=== PATIENT | male | born 1970 | race Caucasian/White ===

== ENCOUNTER 2020-09-08 17:12 | Observation (INO) | payer OTHER ==
[~2020-09-08] VITALS: Ht 167.6 cm; Wt 88.4 kg
--- NOTE | 2020-09-08 17:39 | NUR ---
PT [facility]IS[facility] FROM [facility]. PER EMS PT FELL OFF APPROX 5FT AFTER TRIPPING. PT HAS R ANKLE FX AND CONTUSION TO LEFT CALF. PT RECEIVED 300MCG OF FENTANYL EN ROUTE TO THIS FACILITY. PT ALSO RECEIVED 1L NS AND 8MG OF ZOFRAN AT [facility]. SPLINT IN PLACE ON R FOOT, CMS INTACT. PT RESTING IN [facility], [facility] AT BEDSIDE, DR. BAEZ AT BEDSIDE FOR EVAL, PT STATES PAIN IS "MINIMAL" AT THIS TIME, LAST DOSE OF 100MCG OF FENTANYL WAS AT 1725. NADN AT THIS TIME, TM.
[2020-09-08] MEDS ORDERED: MORPHINE SULFATE 4 MG/ML, 1ML IVPush PRN (18:00)
[2020-09-08] MEDS ORDERED: MORPHINE SULFATE 4 MG/ML, 1ML ONE (18:08)
[2020-09-08] MEDS ORDERED: SODIUM CHLORIDE FLUSH 10ML SYR IVF ONE (18:30)
[2020-09-08] MEDS ORDERED: ONDANSETRON 2MG/ML, 2ML IVPush PRN (20:30)
[2020-09-08] MEDS ORDERED: morphine SULFATE 10 MG/ML, 1ML IV PRN (20:30)
[2020-09-08 20:37] VITALS: BP 184/83
[2020-09-08] MEDS: HYDROmorphone 1 MG/ML, 1ML INJ IV PRN ×2 (23:27→23:45)
[2020-09-09] MEDS ORDERED: HYDROmorphone 2 MG/ML, 1ML IVPush PRN
[2020-09-09] MEDS ORDERED: LACTATED RINGERS 1,000 ML IV SCH
[2020-09-09] MEDS ORDERED: LABETALOL 5MG/ML, 20ML IVPush PRN
[2020-09-09 00:24] VITALS: BP 168/81
[2020-09-09] MEDS: OXYcodone/APAP 5/325MG TABLET PO PRN ×3 (01:25→21:06)
[2020-09-09] MEDS: HYDROmorphone 1 MG/ML, 1ML INJ IV PRN ×2 (05:26→08:29)
[2020-09-09 06:11] LABS: BASOPHILS % (AUTO) 0 % (0-1); EOSINOPHILS % (AUTO) 2 % (1-7); LYMPHOCYTES % (AUTO) 19 % (22-44); MEAN CORPUSCULAR HEMOGLOBIN 30.6 pg (27.5-34.5); MEAN CORPUSCULAR HGB CONC 35.1 g/dL (33.2-36.2); MEAN PLATELET VOLUME 9.7 fL (7.4-10.4); MONOCYTES % (AUTO) 10 % (2-9); NEUTROPHILS % (AUTO) 69 % (42-75); PLATELET COUNT 164 x10^3/uL (130-400); RED BLOOD COUNT 4.41 x10^6/uL (4.38-5.82)
[2020-09-09 06:21] LABS: ANION GAP 4 mmol/L (5-15); CALCIUM 8.4 mg/dL (8.5-10.1); CHLORIDE 107 mmol/L (98-107)
[2020-09-09 06:22] LABS: CREATININE 0.63 mg/dL (0.7-1.3)
[2020-09-09] MEDS: SENNA/DOCUSATE TABLET PO SCH (07:49)
[2020-09-09 07:53] VITALS: BP 136/74
[2020-09-09] MEDS ORDERED: BUPIVACAINE/PF 0.5% ONE (11:16)
[2020-09-09] MEDS ORDERED: EPINEPHRINE 1 MG/ML, 1ML ONE (11:16)
[2020-09-09] MEDS ORDERED: FENTANYL PF 250 MCG/5ML ONE (11:37)
[2020-09-09] MEDS ORDERED: MIDAZOLAM 1 MG/ML, 2ML ONE (11:37)
[2020-09-09] MEDS ORDERED: CEFAZOLIN 1,000 MG ONE (11:38)
[2020-09-09] MEDS ORDERED: PROPOFOL 10 MG/ML, 20ML ONE (11:45)
[2020-09-09] MEDS ORDERED: BUPIVACAINE/PF-EPI 0.5% 1:200K IM ONE (12:07)
[2020-09-09] MEDS ORDERED: ONDANSETRON 2MG/ML, 2ML ONE ×2 (12:13)
[2020-09-09] MEDS ORDERED: DIAZEPAM 5 MG/ML, 2ML IVPush PRN (12:30)
[2020-09-09] MEDS ORDERED: OXYcodone 5 MG/5 ML ORAL.SOL UDC PO PRN (12:30)
[2020-09-09] MEDS ORDERED: DIPHENHYDRAMINE 50 MG/ML, 1ML IVPush PRN ×2 (12:30)
[2020-09-09] MEDS ORDERED: hydrALAzine 20 MG/ML, 1ML IV PRN (12:30)
[2020-09-09] MEDS ORDERED: MEPERIDINE/PF 25MG/0.5ML IVPush PRN (12:30)
[2020-09-09] MEDS ORDERED: ONDANSETRON 2MG/ML, 2ML IVPush PRN (12:30)
[2020-09-09] MEDS ORDERED: PROMETHAZINE 12.5 MG SUPP PR PRN (12:30)
[2020-09-09] MEDS ORDERED: MIDAZOLAM 1 MG/ML, 2ML IV PRN (12:30)
[2020-09-09] MEDS ORDERED: LABETALOL 5MG/ML, 20ML IV PRN (12:30)
[2020-09-09] MEDS ORDERED: PROMETHAZINE 25 MG/ML, 1ML IVPush PRN (12:30)
[2020-09-09] MEDS ORDERED: EPHEDRINE 50 MG/ML, 1ML IVPush PRN (12:30)
[2020-09-09] MEDS ORDERED: ALBUTEROL SULFATE 2.5 MG/3 ML NPPB PRN (12:30)
[2020-09-09] MEDS ORDERED: ACETAMINOPHEN 325 MG TABLET PO PRN ×2 (12:30)
[2020-09-09] MEDS ORDERED: OXYcodone 5 MG/5 ML ORAL.SOL UDC ONE (12:41)
[2020-09-09] MEDS ORDERED: ACETAMINOPHEN 650 MG/20.3 ML UDC ONE (12:41)
[2020-09-09] MEDS ORDERED: FENTANYL PF 100 MCG/2ML ONE (12:41)
[2020-09-09] MEDS: FENTANYL PF 100 MCG/2ML IV PRN ×2 (12:43→12:50)
[2020-09-09] MEDS ORDERED: HYDROmorphone 1 MG/ML, 1ML INJ ONE ×2 (13:03→13:23)
[2020-09-09] MEDS: HYDROmorphone 1 MG/ML, 1ML INJ IVPush PRN ×4 (13:05→13:44)
[2020-09-09] MEDS ORDERED: hydrALAzine 20 MG/ML, 1ML ONE (13:17)
[2020-09-09 14:52] VITALS: BP 133/74
[2020-09-09 19:06] VITALS: BP 159/83
[2020-09-10 00:23] VITALS: BP 148/82
[2020-09-10] MEDS: HYDROmorphone 1 MG/ML, 1ML INJ IV PRN ×2 (00:32→05:38)
[2020-09-10] MEDS: OXYcodone/APAP 5/325MG TABLET PO PRN ×4 (02:19→16:38)
[2020-09-10 04:23] VITALS: BP 111/75
[2020-09-10 07:35] VITALS: BP 117/74
[2020-09-10] MEDS: SENNA/DOCUSATE TABLET PO SCH (08:33)
[2020-09-10 14:01] VITALS: BP 143/73
[2020-09-10] MEDS ORDERED: OXYC5TAB2 PO (16:05)
== END 2020-09-10 18:57 | disposition home or self-care (01) ==
LOC: ED 20:14 → INTOOBSV 20:16 → EDIP 20:16 → 4NE 20:28
PROVIDERS: ADMIT Family Medicine; ATTEND Hospitalist
DX: S82.391A Other fracture of lower end of right tibia, initial encounter for closed fracture (principal); Z20.822 Contact with and (suspected) exposure to COVID-19; S82.831A Other fracture of upper and lower end of right fibula, initial encounter for closed fracture; I26.99 Other pulmonary embolism without acute cor pulmonale; R73.9 Hyperglycemia, unspecified; R74.8 Abnormal levels of other serum enzymes; M25.512 Pain in left shoulder; I63.9 Cerebral infarction, unspecified; W12.XXXA Fall on and from scaffolding, initial encounter; Y92.89 Other specified places as the place of occurrence of the external cause; Y93.89 Activity, other specified
CPT/HCPCS: 20690; 36415; 71045; 73590; 73610; 73700; 80048; 83036; 85025; 87635; 93005; 96361; 96374; 96375; 96376; 97163; 99284; C1713; G0378; J0171; J0360; J0690; J1170; J2250; J2270; J2405; J2704; J3010; J7120; S0020; 76000

== ENCOUNTER 2020-09-26 05:47 | Day surgery (SDC) | payer OTHER ==
[~2020-09-26] VITALS: Ht 167.6 cm; Wt 86.3 kg
[~2020-09-26 05:47] MED LIST: OXYC5TAB2 PO
[2020-09-26] MEDS ORDERED: ACET325T14 PO (06:22)
[2020-09-26] MEDS ORDERED: BUPIVACAINE/PF 0.5% ONE ×2 (06:24→07:08)
[2020-09-26] MEDS ORDERED: LIDOCAINE/PF 1%, 30ML ONE (06:24)
[2020-09-26] MEDS ORDERED: CHLORHEXIDINE 15 ML UDC ONE (06:24)
[2020-09-26] MEDS ORDERED: CHLORHEXIDINE 15 ML UDC PO ONE (06:30)
[2020-09-26] MEDS ORDERED: LACTATED RINGERS 1,000 ML IV SCH (06:30)
[2020-09-26 06:31] VITALS: BP 155/89
[2020-09-26] MEDS ORDERED: MIDAZOLAM 1 MG/ML, 2ML ONE (06:52)
[2020-09-26] MEDS ORDERED: FENTANYL PF 250 MCG/5ML ONE (06:53)
[2020-09-26] MEDS ORDERED: LIDOCAINE-MPF 2% ,5ML ONE (07:03)
[2020-09-26] MEDS ORDERED: KETOROLAC 30 MG/1 ML ONE (07:03)
[2020-09-26] MEDS ORDERED: CEFAZOLIN 1,000 MG ONE (07:08)
[2020-09-26] MEDS ORDERED: ONDANSETRON 2MG/ML, 2ML ONE (07:08)
[2020-09-26] MEDS ORDERED: SODIUM CHLORIDE 0.9% PF 10ML ONE (07:08)
[2020-09-26] MEDS ORDERED: PROPOFOL 10 MG/ML, 20ML ONE (07:08)
[2020-09-26] MEDS ORDERED: DEXAMETHASONE 4 MG/ML, 1ML ONE (07:08)
[2020-09-26] MEDS ORDERED: FENTANYL PF 100 MCG/2ML IV PRN (07:30)
[2020-09-26] MEDS ORDERED: PROMETHAZINE 25 MG/ML, 1ML IVPush PRN (07:30)
[2020-09-26] MEDS ORDERED: hydrALAzine 20 MG/ML, 1ML IV PRN (07:30)
[2020-09-26] MEDS ORDERED: ACETAMINOPHEN 325 MG TABLET PO PRN (07:30)
[2020-09-26] MEDS ORDERED: OXYcodone 5 MG/5 ML ORAL.SOL UDC PO PRN (07:30)
[2020-09-26] MEDS ORDERED: EPHEDRINE 50 MG/ML, 1ML IVPush PRN (07:30)
[2020-09-26] MEDS ORDERED: LABETALOL 5MG/ML, 20ML IV PRN (07:30)
[2020-09-26] MEDS ORDERED: HYDROmorphone 1 MG/ML, 1ML INJ IVPush PRN (07:30)
[2020-09-26] MEDS ORDERED: ONDANSETRON 2MG/ML, 2ML IVPush PRN (07:30)
[2020-09-26] MEDS ORDERED: TRANEXAMIC ACID 100 MG/ML, 10ML ONE (10:05)
== END 2020-09-26 14:00 | disposition home or self-care (01) ==
LOC: OUT 05:47
PROVIDERS: ATTEND Orthopaedic Surgery
DX: S82.871A Displaced pilon fracture of right tibia, initial encounter for closed fracture (principal); S82.491A Other fracture of shaft of right fibula, initial encounter for closed fracture; Z20.822 Contact with and (suspected) exposure to COVID-19; W18.39XA Other fall on same level, initial encounter; Y93.89 Activity, other specified; Y92.89 Other specified places as the place of occurrence of the external cause; Y99.0 Civilian activity done for income or pay
CPT/HCPCS: 27828; 64415; 64447; 73590; 87635; C1713; J0690; J1100; J1885; J2250; J2405; J2704; J3010; J7120; 76000